=== PATIENT | male | born 1980 | race Caucasian/White ===

== ENCOUNTER 2017-01-21 05:20 | Emergency (ER) | payer BC, OTHER ==
[2017-01-21] MEDS ORDERED: Proparacaine 0.5% Ophth Soln 15 ML Bottle EYELF PRN (05:44)
[2017-01-21] MEDS ORDERED: Lactated Ringers 1,000 ML IV SCH (05:45)
--- NOTE | 2017-01-21 11:52 | ER ---
Date of Service: 01/21/2017 SUBJECTIVE: Mateo presents to the emergency room with complaints of pain to his left eye. 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 He did attempt to flush his eye with water in the sink, but was experiencing significant discomfort and subsequently, presented to the emergency room. The patient states that he has a history of bilateral cataract removal from both eyes. He states that his vision is somewhat blurred in his left eye compared to his right. PAST MEDICAL HISTORY: Denies. MEDICATIONS: None. ALLERGIES: NKDA. REVIEW OF SYSTEMS: He complains of pain and blurred vision in his left eye. Denies any other ocular trauma. PHYSICAL EXAMINATION: General: This is a 36-year-old male patient, who is in no acute distress. His visual acuity in his left eye is 20/30 and his right was 20/40. Skin: Warm, pink, and dry. HEENT: Eyes PERRLA. Extraocular movements are intact. He does have evidence of some conjunctival inflammation, but no obvious globe injury is noted. EMERGENCY ROOM COURSE: Several drops of proparacaine were instilled into the patient's left eye. Following this, a Eric lens was placed in the patient's eye and a total of 1 L of lactated Ringer's was infused onto the eye. Poison Control was contacted and they advised this procedure. The patient states that the discomfort had improved significantly and decision was made to discharge the patient. ASSESSMENT: Chemical exposure to left eye. PLAN: The patient discharged. Can use Artificial Tears as needed for dry eye. He is to follow up in the eye clinic in the next several days if he is continuing to have discomfort. All questions were answered. MWK: 01/21/2017 06:19:44 MODL: 01/21/2017 06:47:20 /[id number]
== END 2017-01-21 06:08 | disposition home or self-care (01) ==
LOC: VM.ED 05:20
DX: Z77.098 Contact with and (suspected) exposure to other hazardous, chiefly nonmedicinal, chemicals (principal)
CPT/HCPCS: 99283; J7120

== ENCOUNTER 2019-12-28 11:40 | Emergency (ER) | payer BC ==
--- NOTE | 2019-12-28 12:42 | EDM.PDOC ---
ED HPI GENERAL MEDICAL PROBLEM - General Chief Complaint: ENT Problem Stated Complaint: DIFF HEARING Time Seen by Provider: 12/28/19 12:00 Source of Information: Reports: Patient History Limitations: Reports: No Limitations - History of Present Illness INITIAL COMMENTS - FREE TEXT/NARRATIVE: Patient comes emergency department today with complaints of bilateral wax impaction in his ears and difficulty with hearing. 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 He has tried to clean his ears with a Q-tip but he has been unable to. No pain in his ear is just a muffling to the sound. No difficulty swallowing. No popping in his ears. When he uses Q-tips he has not had any severe pain with the usage of them or change in his hearing. - Related Data Allergies Allergy/AdvReac Type Severity Reaction Status Date / Time No Known Allergies Allergy Verified 12/28/19 11:51 Home Meds: Home Meds . [No Known Home Meds] 01/21/17 [History] Past Medical History - Past Health History Medical/Surgical History: Denies Medical/Surgical History ED ROS ENT - Review of Systems Review Of Systems: Comprehensive ROS is negative, except as noted in HPI. ED EXAM, ENT - Physical Exam Exam: See Below Exam Limited By: No Limitations General Appearance: Alert, WD/WN, No Apparent Distress Eye Exam: Bilateral Eye: EOMI, Normal Inspection Ears: Normal External Exam, Cerumen Impaction (Bilaterally Without erythema.) Nose: Normal Inspection, Normal Mucousa, No Blood Mouth/Throat: Normal Inspection, Normal Gums, Normal Teeth Head: Atraumatic, Normocephalic Neck: Normal Inspection, Supple, Non-Tender, Full Range of Motion Respiratory/Chest: No Respiratory Distress, Lungs Clear, Normal Breath Sounds, Chest Non-Tender Cardiovascular: Normal Peripheral Pulses, Regular Rate, Rhythm GI/Abdominal: Normal Bowel Sounds, Soft Back: Normal Inspection Extremities: Normal Inspection, No Pedal Edema Neurological: Alert, Oriented, No Motor/Sensory Deficits Skin: Warm, Dry, Intact, Normal Color Course - Vital Signs Last Recorded V/S: Last Vital Signs Temp 37.3 C 12/28/19 11:45 Pulse 66 12/28/19 11:45 Resp 16 12/28/19 11:45 BP 139/90 12/28/19 11:45 Pulse Ox 96 12/28/19 11:45 - Re-Assessments/Exams Free Text/Narrative Re-Assessment/Exam: 12/28/19 16:45 Hydrogen peroxide to both ears. Then we easily irrigated his canals until clear without difficulty. NO left over cerumen. TMs are pearly cruz and no fluid or traums. I discussed ways with the patient to help prevent the cerumen buildup in his ears on a daily basis by using [id number] products. He was comfortable with this plan his questions are answered. Departure - Departure Time of Disposition: 12:39 Disposition: Home, Self-Care 01 Clinical Impression: Impacted cerumen of both ears - Discharge Information Referrals: PCP,None [Primary Care Provider] - Forms: ED Department Discharge Additional Instructions: Do not use Q tips to clean your ear. There is OTC Debrox solution to soften wax follow instructions. Then OTC ear wash kits as well to wash it away. Follow the instructions on the box for both. Follow up as needed. Sepsis Event Note (ED) - Evaluation Sepsis Screening Result: No Definite Risk - Focused Exam Vital Signs: Vital Signs Temp Pulse Resp BP Pulse Ox 12/28/19 11:45 37.3 C 66 16 139/90 96 - Assessment/Plan Assessment:: Bilateral ear cerumen impaction. Ear wash bilaterally. Plan: Do not use Q tips to clean your ear. There is OTC Debrox solution to soften wax follow instructions. Then OTC ear wash kits as well to wash it away. Follow the instructions on the box for both. Follow up as needed.
== END 2019-12-28 12:45 | disposition home or self-care (01) ==
LOC: VM.ED 11:40
DX: H61.23 Impacted cerumen, bilateral (principal)
CPT/HCPCS: 99282